=== PATIENT | male | born 1945 | race Two or more races ===

== ENCOUNTER 2017-11-09 09:39 | Outpatient (CLI) | payer MEDICARE, OTHER ==
[2017-11-09] MEDS ORDERED: CT SWABBABLE VALVE TRANS SET 1 EA INFUS.SET MC ONE (10:37)
[2017-11-09] MEDS ORDERED: IOHEXOL-350 100 ML VIAL IV ONE (10:37)
[2017-11-09] MEDS ORDERED: IV NS 0.9% 250 ML IV ONE (10:38)
[2017-11-09 11:13] LABS: CALCIUM, SERUM 9.3 mg/dL (8.5-10.1); CARBON DIOXIDE 29 mmol/L (21-32); CHLORIDE 102 mmol/L (98-107); CREATININE 1.4 mg/dL (0.6-1.3); GLUCOSE 157 mg/dL (74-106); POTASSIUM 4.9 mmol/L (3.5-5.1); SODIUM SERUM 140 mmol/L (136-145); UREA NITROGEN, BLOOD 29 mg/dL (7-18)
[2017-11-09] MEDS ORDERED: NITROGLYCERIN 4.9 GM SPRAY ONE (11:44)
== END 2017-11-09 23:59 | disposition home or self-care (01) ==
LOC: CT 09:39
PROVIDERS: ATTEND Internal Medicine Interventional Cardiology
DX: I25.10 Atherosclerotic heart disease of native coronary artery without angina pectoris (principal); E11.9 Type 2 diabetes mellitus without complications; I10 Essential (primary) hypertension; E78.5 Hyperlipidemia, unspecified
CPT/HCPCS: 36415; 75574; 80048; J7050; Q9967